=== PATIENT | female | born 1945 | race Caucasian/White ===

== ENCOUNTER → 2018-04-15 11:58 | Outpatient (CLI) | payer MEDICARE, OTHER, SELFPAY ==
--- NOTE | 2018-04-15 | DI.MRI.S_ITS ---
PROCEDURE: MR LUMBAR SPINE WO CON INDICATIONS: LUMBAR SPINE PAIN TECHNIQUE: Noncontrast sagittal T1 spin echo and T2 fast echo, sagittal STIR, axial T1 and T2 fast spin echo through the lumbar spine. In cases with scoliosis, additional coronal T2 fast spin echo may be performed. COMPARISON: None. FINDINGS: Image quality: Excellent. Alignment and Curvature: There is mild dextroconvex scoliotic curvature within the lumbar spine. Posterior fusion is present from L2-L5. There is trace retrolisthesis of L1 on L2, L3 on L4, L5 on S1. Bone Marrow: Marrow is of normal overall signal. No acute vertebral body compression fractures. Spinal Cord: Conus medullaris terminates at the L2 level. Visualized cord demonstrates normal signal and size. 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 Paraspinous Soft Tissues: No paravertebral masses. Prominent T2 hyperintensity is present within the right kidney most suggestive of cyst. L1-L2: Mild disc bulge without spinal stenosis. Moderate left foraminal narrowing with facet and ligamentum flavum hypertrophy. L2-L3: Postsurgical changes are present at this level. No spinal stenosis. Minimal to mild left foraminal narrowing. L3-L4: Postsurgical changes are present at this level. There is moderate spinal stenosis. Moderate left foraminal narrowing. There is increased T2 signal within the exiting right nerve root. Facet and ligamentum flavum hypertrophy are present. L4-L5: Postsurgical changes are present. Mild spinal stenosis is present. Minimal left and moderate to severe right foraminal narrowing with facet and ligamentum flavum hypertrophy. Increased T2 signals present within the exiting right nerve root. L5-S1: Postsurgical changes are present at this level. Mild spinal stenosis is present. There is severe right and minimal left foraminal narrowing with prominent nerve root flattening on the right. Facet and ligamentum flavum hypertrophy are present. IMPRESSION: 1. Postsurgical changes from L2-S1 are noted. 2. Multilevel foraminal narrowing severe at L5-S1 with flattening noted on the right as above. This is predominantly secondary to facet/ligamentum flavum arthropathy. 3. Increased T2 signal within the exiting nerve root at L3 and L4. This could be related to nerve root sleeve cyst. If concern for schwannoma exists, contrast study is recommended for further evaluation. Dictated by: Perlita Benson M.D. on 04/15/2018 at 16:08 Approved by: Perlita Benson M.D. on 04/15/2018 at 16:13
== END ==
PROVIDERS: Visit Provider Orthopaedic Surgery
DX: M54.5 Low back pain (principal); M47.816 Spondylosis without myelopathy or radiculopathy, lumbar region
CPT/HCPCS: 72148

== ENCOUNTER → 2024-02-04 18:37 | Outpatient (CLI) | payer MEDICARE, OTHER, SELFPAY ==
--- NOTE | 2024-02-04 | DI.MRI.S_ITS ---
PROCEDURE: MR HIP LT WO CON INDICATIONS: LEFT HIP PAIN TECHNIQUE: Noncontrast coronal T1 spin echo and STIR through the bony pelvis. Coronal and axial T2 fast spin echo with fat saturation, sagittal T1 spin echo, and oblique axial T2 fast spin echo with fat saturation through the hip. COMPARISON: [facility], CR, XR LUMBAR SPINE 2 OR 3 VIEWS, 05/07/2023, 13:27. [facility], CR, XR PELVIS WITH BILATERAL LATERAL HIPS, 03/14/2023, 14:32. FINDINGS: Image quality: Excellent. Bones and joints: Moderate bilateral hip joint osteoarthritic changes are seen with joint space narrowing, subchondral sclerosis and marginal osteophyte formation. No intraosseous lesions or fractures. No avascular necrosis of the femoral heads. Postsurgical changes are noted in visualized lower lumbar spine. Tendons and ligaments: Low-grade partial-thickness tear involving distal left gluteus medius tendon at its insertion on greater trochanter is seen . Distal left gluteus minimus tendinosis is also noted. The nearby proximal iliotibial band also appears intact. The iliopsoas tendon appears intact, without adjacent bursal fluid collections or evidence for impingement syndrome. The origin of the hamstring tendon is intact at the ischial tuberosity, as well as the associated sacrotuberous ligament. Labrum and cartilage: Diffuse thinning of articulating cartilage over left femoral head is seen with suggestion of posterior superior left hip labral tear extending from 10-12 o'clock position. The alpha angle of the femur is within normal limits at less than 55 degrees. Soft tissues: Visualized muscles demonstrate normal bulk and internal signal. Quadratus femoris muscle demonstrates no internal edema to suggest ischiofemoral impingement. The proximal sciatic neurovascular bundle appears normal adjacent to the hamstring tendons. No free pelvic fluid. Bladder wall thickness is normal. Genitourinary structures and bowel loops appear normal where visualized. IMPRESSION: 1. Moderate bilateral hip joint osteoarthritis. No pelvic or hip fracture. No evidence of avascular necrosis. 2. Low-grade partial-thickness tear involving distal left gluteus medius tendon at its insertion on greater trochanter. Distal left gluteus minimus tendinosis. No other muscle or tendon signal abnormalities. 3. Suggestion of posterior superior left hip labral tear at 10 to 12 o'clock position. Dictated by: Ceasar Pittman M.D. on 02/05/2024 at 10:21 Approved by: Ceasar Pittman M.D. on 02/05/2024 at 10:35
--- NOTE | 2024-02-04 | DI.MRI.S_ITS ---
P in ROCEDURE: MR LUMBAR SPINE WO CON INDICATIONS: Spondylosis lumbar region Trochanteric bursitis, TECHNIQUE: Noncontrast sagittal T1 spin echo and T2 fast echo, sagittal STIR, and T2 fast spin echo through the lumbar spine. In cases with scoliosis, additional coronal T2 fast spin echo may be performed. COMPARISON: [facility], CR, XR LUMBAR SPINE 2 OR 3 VIEWS, 07/28/2020, 13:19. [facility], MR, MR LUMBAR SPINE WO CON, 04/15/2018, 12:18. [facility], CR, XR LUMBAR SPINE 2 OR 3 VIEWS, 05/07/2023, 13:27. FINDINGS: Image quality: Excellent. Alignment and Curvature: Moderate dextrocurvature. Trace retrolisthesis of L1 on L2, as before. Remote posterior lateral bilateral niki and pedicle screw fixation . On the right, pedicle screws are present in L2 and L4. On the left, pedicle screws are present in L2, L3, and L5. There is also remote interbody fusion at L2-L3 through L4-L5. Interbody fusion is mature. Bone Marrow: Marrow is of normal overall signal. No acute vertebral body compression fractures. Spinal Cord: Conus medullaris terminates at the L2 level. Visualized cord demonstrates normal signal and size. Paraspinous Soft Tissues: No paravertebral masses. T12-L1: No canal stenosis or foraminal stenosis. L1-L2: Stable findings. Trace retrolisthesis of L1 on L2. Facet hypertrophy. Left facet hypertrophy narrows the left lateral recess. There is moderate left foraminal narrowing. L2-L3: Stable findings. Mature interbody fusion and posterior lateral fusion. Facet hypertrophy. No canal stenosis or significant foraminal stenosis. L3-L4: Stable findings. Mature interbody fusion and posterior lateral fusion. Facet hypertrophy. Mild canal stenosis. No significant foraminal stenosis. L4-L5: Stable findings. Remote interbody fusion and right facetectomy and posterior lateral fusion. No significant canal stenosis. Mild right foraminal stenosis. L5-S1: Disc bulge. Facet hypertrophy. No canal stenosis. Severe right foraminal narrowing with right foraminal L5 nerve root impingement, as before. No significant left foraminal narrowing. IMPRESSION: 1. Underlying dextrocurvature, remote multilevel interbody fusion and posterior lateral fusion, remote right facetectomy at L4-L5. 2. No central canal stenosis. 3. Chronic findings of left lateral recess stenosis at L1-L2. 4. Stable findings at L5-S1. Findings include facet hypertrophy and severe right foraminal narrowing with right foraminal L5 nerve root impingement. Dictated by: Enrique Huston M.D. on 02/05/2024 at 9:17 Approved by: Enrique Huston M.D. on 02/05/2024 at 9:27
== END ==
PROVIDERS: PCP Internal Medicine; Referring Provider Physical Medicine & Rehabilitation; Visit Provider Physical Medicine & Rehabilitation
DX: M47.816 Spondylosis without myelopathy or radiculopathy, lumbar region (principal); M47.817 Spondylosis without myelopathy or radiculopathy, lumbosacral region; M48.061 Spinal stenosis, lumbar region without neurogenic claudication; M48.07 Spinal stenosis, lumbosacral region; S76.012A Strain of muscle, fascia and tendon of left hip, initial encounter; M16.0 Bilateral primary osteoarthritis of hip; M70.62 Trochanteric bursitis, left hip; Z98.1 Arthrodesis status
CPT/HCPCS: 72148; 73721

== ENCOUNTER 2024-04-18 17:31 | Emergency (ER) | payer OTHER, MEDICARE, SELFPAY ==
[2024-04-18 17:38] VITALS: BP 145/67; PULSE 75; RESP 16; TEMP 36.9; O2SAT 99
--- NOTE | 2024-04-18 18:07 | ED.WOUNDLAC ---
HPI - Wound/Laceration <Shauna Malik PA-C - Last Filed: 04/18/24 20:18> General Chief Complaint: Wound/Laceration Stated Complaint: rt hand lac Time Seen by Provider: 04/18/24 18:07 Source: patient Mode of arrival: Family Vehicle History of Present Illness HPI narrative: 78-year-old woman presents with concern for a injury to the dorsum of her right hand. Patient states she was trying to pull a bone out of her dog's mouth this afternoon when her dog's tooth accidentally caught on the top of her right hand and pulled on causing a laceration/flap avulsion. She says her dog is a chu retriever [place]. She says it was not a bite and she did not feel like she got punctured but the area has been gradually more and more painful and she is noticed it is uncomfortable to move her fingers particularly straightening her hand or moving her fingers up and extending them. Largely it is her middle finger that is uncomfortable but she is little discomfort with moving her ring finger as well due to swelling on the top of her hand. She denies any other injuries, complaints or concerns Related Data Home Medications Medication Instructions Recorded Confirmed [THYROXINE] PO QDAY ##0 06/10/16 [biest] PO QDAY ##0 06/10/16 chlorthalidone 25 mg tablet PO QDAY ##0 06/10/16 cholecalciferol (vitamin D3) 100 PO QDAY ##0 06/10/16 mcg (4,000 unit) capsule (Vitamin D3) colchicine 0.6 mg capsule PO BID ##0 06/10/16 ibuprofen 100 mg tablet (Advil) Unknown PO QID ##0 06/10/16 omeprazole 40 mg capsule,delayed PO BID ##0 06/10/16 release ranitidine HCl 75 mg tablet PO BID ##0 06/10/16 Previous Rx's Medication Instructions Recorded amoxicillin 875 mg-potassium 1 tab PO Q12H dog bite prophylaxis 04/18/24 clavulanate 125 mg tablet 7 days #14 tabs Allergies Allergy/AdvReac Type Severity Reaction Status Date / Time Sulfa (Sulfonamide Allergy Unknown Unverified 01/30/18 12:38 Antibiotics) [SULFA (SULFONAMIDE ANTIBIOTICS)] Review of Systems <Shauna Malik PA-C - Last Filed: 04/18/24 20:18> Review of Systems Narrative: See HPI Patient History <Shauna Mlaik PA-C - Last Filed: 04/18/24 20:18> Social History Smoking Status: Never smoker Smoking Status: Never smoker Substance Use Type: does not use Exam <Shauna Malik PA-C - Last Filed: 04/18/24 20:18> Narrative Exam Narrative: GENERAL: 78 year old patient appears stated age. Well-developed patient, in mild distress. HEAD: Atraumatic. Normocephalic. EYES: Pupils equal round and reactive. Extraocular motions intact. No scleral icterus. No injection or drainage. ENT: Nose without bleeding, purulent drainage. Airway patent. NECK: Trachea midline. Non tender CARDIOVASCULAR: Regular rate and rhythm without murmurs, gallops, or rubs. RESPIRATORY: Clear to auscultation. Breath sounds equal bilaterally. No wheezes, rales, or rhonchi. EXTREMITIES: There is a flap avulsion 1 cm x 1 cm over the dorsum of the right hand centered, just over the extensor tendon of the 3rd digit. The flap is very thin and poorly perfused and bluish in color, nonviable not appropriate for suture. With washout and examination there is no deep tissue involvement or exposure of tendons or bone. She does have pain with extension of the 3rd digit. Range of motion is intact, capillary refills less than 2 seconds. No edema or joint tenderness. NEURO: AOx3. SKIN: No rash or erythema of visible areas Initial Vital Signs Initial Vital Signs: Vital Signs Temperature 98.5 F 04/18/24 17:38 Pulse Rate 75 04/18/24 17:38 Respiratory Rate 16 04/18/24 17:38 Blood Pressure 145/67 H 04/18/24 17:38 Pulse Oximetry 99 04/18/24 17:38 Oxygen Delivery Method Room Air 04/18/24 17:38 <Fredrick Mckeon MD - Last Filed: 04/19/24 06:19> Initial Vital Signs Initial Vital Signs: Vital Signs Temperature 98.5 F 04/18/24 17:38 Pulse Rate 75 04/18/24 17:38 Respiratory Rate 16 04/18/24 17:38 Blood Pressure 145/67 H 04/18/24 17:38 Pulse Oximetry 99 04/18/24 17:38 Oxygen Delivery Method Room Air 04/18/24 17:38 Procedures <Shauna Malik PA-C - Last Filed: 04/18/24 20:18> Laceration Repair Laceration 1: Time of procedure: 19:15 Site: hand (dorsum) Size (cm): 2 Description: flap (v-shaped 1cm/1cm flap) Depth: simple, single layer (possible puncture) Local Anesthetic: other anesthetic (lidocaine/prilocaine) Pre-repair: wound explored, irrigated extensively, deep structures intact (pain w/extension of middle finger) and cleansed with chlorhexadine Skin layer closed with: steri-strips Number of sutures: 5 Course <Shauna Malik PA-C - Last Filed: 04/18/24 20:18> Orders Ordered: Discontinued Medications Acetaminophen (Acetaminophen 325 Mg Tablet) 650 mg PO NOW ONE Stop: 04/18/24 19:29 Last Admin: 04/18/24 19:47 Dose: 650 mg Documented By: YAN Amoxicillin/Clavulanate Potassium (Amoxicillin/Clav 875/125 Mg) 1 tab PO NOW ONE Stop: 04/18/24 19:15 Last Admin: 04/18/24 19:47 Dose: 1 tab Documented By: YAN Ibuprofen (Ibuprofen 400 Mg Tablet) 400 mg PO NOW ONE Stop: 04/18/24 19:29 Last Admin: 04/18/24 19:48 Dose: 400 mg Documented By: YAN Lidocaine HCl (Lidocaine 1% 20 Ml) 10 ml SUBCUT NOW ONE Stop: 04/18/24 18:22 Lidocaine/Prilocaine (Lidocaine/Prilocaine 5 Gm) 5 gm TOP NOW ONE Stop: 04/18/24 18:21 Vital Signs Vital signs: Vital Signs - 8 hr 04/18/24 17:38 Temperature 98.5 F Pulse Rate 75 Respiratory Rate 16 Blood Pressure 145/67 H Pulse Oximetry 99 Oxygen Delivery Method Room Air <Fredrick Mckeon MD - Last Filed: 04/19/24 06:19> Orders Ordered: Discontinued Medications Acetaminophen (Acetaminophen 325 Mg Tablet) 650 mg PO NOW ONE Stop: 04/18/24 19:29 Last Admin: 04/18/24 19:47 Dose: 650 mg Documented By: YAN Amoxicillin/Clavulanate Potassium (Amoxicillin/Clav 875/125 Mg) 1 tab PO NOW ONE Stop: 04/18/24 19:15 Last Admin: 04/18/24 19:47 Dose: 1 tab Documented By: YAN Ibuprofen (Ibuprofen 400 Mg Tablet) 400 mg PO NOW ONE Stop: 04/18/24 19:29 Last Admin: 04/18/24 19:48 Dose: 400 mg Documented By: YAN Lidocaine HCl (Lidocaine 1% 20 Ml) 10 ml SUBCUT NOW ONE Stop: 04/18/24 18:22 Lidocaine/Prilocaine (Lidocaine/Prilocaine 5 Gm) 5 gm TOP NOW ONE Stop: 04/18/24 18:21 Vital Signs Vital signs: Vital Signs - 8 hr 04/18/24 17:38 Temperature 98.5 F Pulse Rate 75 Respiratory Rate 16 Blood Pressure 145/67 H Pulse Oximetry 99 Oxygen Delivery Method Room Air MDM - Wound/Laceration <Shauna Malik PA-C - Last Filed: 04/18/24 20:18> Medical Records Attestation: I reviewed the patient's medical records. Imaging Data Extremity x-ray #1: My Impression: Agree with Radiology interpretation Radiologist's Impression: [place] [address] XRay Report Signed Patient: Jenny Goldberg MR#: [id number] : 1945 Acct:[id number] Age/Sex: 78 / F Date of Service: 04/18/24 Loc: ED Accession Number: [id number] Procedure: XR hand RT 2V Ordering Provider: Shauna Malik P.A-C PROCEDURE: XR HAND RT 2V INDICATIONS: dog tooth ripped dorsum of hand TECHNIQUE: 2 views of the hand(s) acquired. COMPARISON: None. FINDINGS: Bones: No acute fracture. Radial subluxation of the 3rd distal phalanx with marked degenerative changes at the DIP and to a lesser extent the PIP joint, likely chronic. Moderate radiocarpal degenerative changes. Soft tissues: No suspicious soft tissue calcifications. No radiodense foreign bodies in the soft tissues. IMPRESSION: No acute radiographic abnormality. Radiocarpal and 3rd DIP and PIP joint degenerative changes. No soft tissue radiodensity to suggest foreign body. Approved by: Shahida Calle M.D.,Ph.D. on 04/18/2024 at 17:52 MDM Narrative Medical decision making narrative: This is a well-appearing 78-year-old woman who has not on blood thinners presents with concern for a injury to her the dorsum of her right hand strain from her dog today she is adamant it was not a ?bite, but her dog's mouth did cause an avulsion laceration today. After it numbing exam and washout in cleansing with chlorhexidine, sutures are not indicated both because the flap is nonviable tissue, and because it is a dog bite with high-risk of infection. The wound is closed with Steri-Strips not tightly, and bandaged with a nonstick dressing and Kerlix. Patient was given Tylenol, ibuprofen and 1st dose of Augmentin today in the emergency department with 7 day course of Augmentin to follow. She is advised to follow up with Orthopedics given she has pain and discomfort with extension of the middle finger and I can not rule out puncture wound possibly causing damage to the tendon sheath. X-rays today show no abnormality. Return precautions provided, follow-up plan discussed, all questions answered. Discharge Plan Departure Patient Disposition: Home Clinical Impression: Dog bite of dorsum of hand, Avulsion of skin Instructions: DI for Laceration Repair-Skin Closure Strips, DI for Puncture Wound Activity Restrictions/Additional Instructions: *You have been diagnosed with [avulsion/laceration to the dorsum of her hand from dog tooth/bite] *What to do: *Please continue to take your regular medications as directed. [ 1] New medication prescriptions sent to your pharmacy: [Augmentin] [ ] New medication written as a paper prescription [ ] No new medications given *Please follow up with your primary care provider in 2-3 days, call for an appointment. Let them know you were seen in the Emergency Department and that we ask that you be seen in follow up. We will electronically transmit a record of today's note if your PCP is in our system. We used topical numbing medicine on your wound today and washed out the area and examined it. There does not appear to be tendon involvement or deep tissue or structure involvement however given that this was a dog tooth that caused the injury there is always a possibility that there is a puncture wound, that tracked deeper and has since closed. UR having some tenderness with extending your tendons at the area of swelling, and it is possible that you could have damaged the tendon sheath that goes around the outside of the tendon of the middle finger. It is also possible that your discomfort is simply due to the inflammation and swelling from the trauma sustained today. Your x-rays looked good today. We gave you 1st dose of antibiotic today in the emergency department and you need to take the remainder of the antibiotics even if your pain and swelling have improved completely and you see no signs of infection. I am encouraging you to follow up with Orthopedics for further evaluation given your pain with movement of your finger. We closed the wound today with Steri-Strips both because the tissue on the avulsion flap was not viable for stitches and because there is a high risk of infection with this type of injury and it is best not to close them tightly. You need to keep the area clean and dry I recommend Tylenol and ibuprofen for pain you can try ice on and off tonight for no more than 10 minutes at a time. And you may want to keep the area gently bandaged with a small amount of compression for protection and to reduce swelling. *If you do not have a primary care provider please contact the [facility] Resource line at [phone]. They will ask some questions about your medical history and help get you set up with a doctor in the community. *Return to Emergency Department if you should have any new, worsening or concerning symptoms, such as [fever greater than 101 F, shaking chills, worsening pain, persistent vomiting or other bothersome symptoms] Prescriptions: New amoxicillin-pot clavulanate 875-125 mg tablet 1 tab PO Q12H 7 Days Qty: 14 0RF No Action [biest] PO QDAY Qty: 0 [THYROXINE] PO QDAY Qty: 0 ibuprofen [Advil] 100 MG tablet Unknown PO QID Qty: 0 omeprazole 40 MG capsule,delayed release(DR/EC) PO BID Qty: 0 ranitidine HCl 75 MG tablet PO BID Qty: 0 colchicine 0.6 MG capsule PO BID Qty: 0 cholecalciferol (vitamin D3) [Vitamin D3] 4,000 UNIT capsule PO QDAY Qty: 0 chlorthalidone 25 mg tablet PO QDAY Qty: 0 Referrals: Aidan Mancini MD [Primary Care Provider] - Maggie Fisher MD [Physician] - (dog bite dorsum r hand; concern for puncture w/tendon sheath involvement) Stand Alone Forms: Patient Portal/API ED Sign-out <Fredrick Mckeon MD - Last Filed: 04/19/24 06:19> Sign Out Provider Sign Out Attestation: I was immediately available in the department for consultation. This documentation has been reviewed. Supervised by Fredrick Mckeon MD
--- NOTE | 2024-04-18 18:14 | PC.NURSE ---
Pt states that she was playing with her dog and her hand hit the dog's tooth. pt has laceration on top of right hand. pt states that she is feeling 7/10 pain at this time. Pt has full range of motion in hand and wrist.
--- NOTE | 2024-04-18 18:19 | DI.RAD.S_ITS ---
PROCEDURE: XR HAND RT 2V INDICATIONS: dog tooth ripped dorsum of hand TECHNIQUE: 2 views of the hand(s) acquired. COMPARISON: None. FINDINGS: Bones: No acute fracture. Radial subluxation of the 3rd distal phalanx with marked degenerative changes at the DIP and to a lesser extent the PIP joint, likely chronic. Moderate radiocarpal degenerative changes. Soft tissues: No suspicious soft tissue calcifications. No radiodense foreign bodies in the soft tissues. IMPRESSION: No acute radiographic abnormality. Radiocarpal and 3rd DIP and PIP joint degenerative changes. No soft tissue radiodensity to suggest foreign body. Approved by: Shahida Calle M.D.,Ph.D. on 04/18/2024 at 17:52
[2024-04-18] MEDS: ACETAMINOPHEN 325 MG TABLET 650 MG PO (19:47)
[2024-04-18] MEDS: AMOXICILLIN/CLAV 875/125 MG 1 TAB PO (19:47)
[2024-04-18] MEDS: IBUPROFEN 400 MG TABLET PO (19:48)
== END 2024-04-18 19:56 | disposition home or self-care (01) ==
PROVIDERS: Emergency Provider Student in an Organized Health Care Education/Training Program; PCP Internal Medicine
DX: S61.451A Open bite of right hand, initial encounter (principal); W54.0XXA Bitten by dog, initial encounter
CPT/HCPCS: 73120; 99283